=== PATIENT | male | born 1945 | race Caucasian/White ===

== ENCOUNTER 2016-09-14 11:50 | Inpatient (IN) | payer MEDICARE, OTHER ==
--- NOTE | ~2016-09-14 | DS ---
Discharge Summary [facility] [address] [place]. [address] NAME: MARIE HYDE : 45 STATUS : ADM IN [facility]#: [id number] AGE: 71 ADM/REG DATE : 09/14/16 MR#: [id number] REPORT SERV DATE: 09/19/16 DICTATED BY: DATE: REPORT STATUS : Draft TRANSCRIBED BY: MODL DATE: 09/18/16 ADMISSION DATE: 09/14/2016 DISCHARGE DATE: ANTICIPATED DATE OF DISCHARGE: 09/19/2016. [facility] CONSULTANTS: Included Dr. Adilson Benites of Surgery. DISCHARGE DIAGNOSES: 1. Sepsis due to urinary tract infection. 2. Urinary tract infection - Pseudomonas and Citrobacter, both are fluoroquinolone susceptible. Treated with 5 days of antibiotics following suprapubic catheter exchange. 3. Obstructed suprapubic catheter. 4. Acute urinary retention. 5. Incarcerated peristomal hernia - spontaneously resolved after resolution of urinary retention. For possible elective hernia repair in the future. 6. Resolved partial small-bowel obstruction. 7. History of Crohn's disease with colostomy and ileostomy. 8. History of hypertension - not requiring medication this admission. 9. History of non-insulin dependent diabetes mellitus type 2 - hemoglobin A1c is 5.8. Diet controlled. 10.Sensory disabilities - deaf and mute. IMAGING AND DIAGNOSTICS: 1. CT of abdomen and pelvis without contrast done 09/14/2016 shows bowel obstruction at the point of a peristomal hernia in the right lower quadrant. The medial most herniated loop appears to be the point of an obstruction. Suprapubic catheter appears non-functioning with bladder markedly distended to the level of the umbilicus. Fat- containing inguinal hernia on the right, easily reducible. Bilateral intrarenal calculi with no ureteral stone. Hydronephrosis due to bladder distention. 2. Abdominal films, AP and upright, show mildly distended proximal small bowel with gas fluid levels and little gas distally raises the possibility of early or partial small- bowel obstruction. PERTINENT LABS: Procalcitonin 0.05, TSH 2, and hemoglobin A1c 5.8. Urinalysis with large leukocyte esterase, 75 white blood cells, and many bacteria. Subsequent culture demonstrating Pseudomonas and Citrobacter. Pseudomonas was resistant to Bactrim, but both were fluoroquinolone sensitive. White blood cell count 6, hemoglobin 12.4, hematocrit 38, platelets 140, and creatinine 1.0. Lactic acid level was negative. BRIEF HISTORY: For full details, please see the previously dictated history of present illness. This is a 71-year-old white male, who resides at [facility]. He has a past history of Crohn's disease with a colostomy and past history of neurogenic bladder with an Discharge Summary [address] [place]. [address] NAME: MARIE HYDE : [birth year] STATUS : ADM IN [facility]#: [id number] AGE: 71 ADM/REG DATE : 09/14/16 MR#: [id number] REPORT SERV DATE: 09/19/16 DICTATED BY: DATE: REPORT STATUS : Draft TRANSCRIBED BY: MODL DATE: 09/18/16 indwelling suprapubic catheter. Despite some of his sensory difficulties, reportedly he manages his own suprapubic catheter and ostomy at [facility]. He was diagnosed with a urinary tract infection there on the 09/09/2016 and was started on Bactrim, but despite this, he continued to express some ongoing abdominal pain in the form of clutching his abdomen with some declining oral intake. He was brought to the emergency department where he was found to have an obstructed suprapubic catheter which was exchanged in the ER with 1.5 L of urine output. In the ER, he also was noted to have an incarcerated peristomal hernia, with concern for the need for emergent surgery that evening. HOSPITAL COURSE: After the suprapubic catheter was exchanged, the patient's incarcerated hernia resolved spontaneously, and though the patient was seen by Dr. Adilson Benites in the emergency department, he ended up not needing to take the patient to surgery. Sepsis responded to IV fluids and treatment with antibiotics. The patient was placed on Zosyn while urine culture results were awaited and then changed to Levaquin prior to discharge. Optimal duration of treatment for suprapubic catheter associated UTI was discussed with Infectious Disease who recommended 5 days total. The patient completed the 5 day course here in the hospital. The patient also had evidence of a partial small-bowel obstruction which was initially managed conservatively. It resolved radiographically and clinically without any intervention aside from being kept n.p.o. initially, and the patient's diet was slowly advanced to a regular diet during the hospitalization. The patient's other medical issues were stable this admission. He carries a prior diagnosis of hypertension for which he takes Norvasc as an outpatient. Here, his systolic blood pressures range from 110 to 120 tops, and he did not require any amlodipine during the admission. DISCHARGE DISPOSITION: The patient is being discharged to [facility] in the morning, when they are able to accept the patient back. He has been medically stable for discharge since Monday but discharge was delayed due to their inability to [facility]. The patient's power of environmental attorney should schedule a followup appointment with Dr. Benites in 4 to 6 weeks to discuss possibility of an elective hernia repair if they are interested. The patient's suprapubic catheter should be exchanged monthly at [facility] and monitored closely for any signs of recurrent obstruction. DISCHARGE MEDICATIONS: Include: 1. Erythromycin ophthalmic ointment 0.5% applied to both eyes at bedtime. 2. Mesalamine 1500 mg p.o. twice a day. 3. Protonix 40 mg p.o. q.a.c. breakfast and supper. 4. Potassium 30 mEq p.o. daily. 5. Fosamax 35 mg p.o. weekly. 6. Artificial Tears one drop in each eye 4 times a day. 7. Ciera-Colace 1 tablet p.o. twice a day. 8. Centrum 1 tablet p.o. daily. 9. Citracal 2 tablets p.o. twice a day. Discharge Summary [address] [address] NAME: MARIE HYDE : 45 STATUS : ADM IN [facility]#: [id number] AGE: 71 ADM/REG DATE : 09/14/16 MR#: [id number] REPORT SERV DATE: 09/19/16 DICTATED BY: DATE: REPORT STATUS : Draft TRANSCRIBED BY: PALOMA DATE: 09/18/16 10.Fleets enema given each Monday. Thirty minutes was spent in completion of the discharge. SOHA/PALOMA eJro Colvin M.D. / [id number] CC: Emanuel Caldwell M.D. Randy Heisser, M.D. [facility]
--- NOTE | ~2016-09-14 | CN ---
Consultation Report [facility] [address] [place]. [address] NAME: MARIE HYDE : 45 STATUS : ADM IN [facility]#: [id number] AGE: 71 ADM/REG DATE : 09/14/16 MR#: [id number] REPORT SERV DATE: 09/15/16 DICTATED BY: CHELSI CHARLES III DATE: 09/15/16 REPORT STATUS : Draft TRANSCRIBED BY: MODVarun DATE: 09/15/16 DATE OF CONSULTATION: 09/14/2016 REASON FOR CONSULT: 1. Small-bowel obstruction. 2. Incarcerated incisional hernia. 3. Recommendation regarding surgical management. HISTORY OF PRESENT ILLNESS: I am asked to see this 71-year-old male hospitalized for the above reasons. The patient has a history of mental disability and is not able to communicate. He is deaf and mute. The patient lives locally at [facility]. On the morning of admission, he was noted to have sudden change in his status with apparent abdominal pain and distention. He was brought to the emergency room and CT scan of the abdomen and pelvis were performed which showed evidence for severe bladder distention as well as what appeared to be incarcerated parastomal hernia with small bowel obstruction related to this hernia. The patient himself is not able to communicate. He was noted to have a palpable mass just medial to his right- sided right lower quadrant ileostomy. This was noted by Dr. Esteves in the emergency room. It was felt that emergent repair was indicated. The patient was posted for surgery for repair of this acutely incarcerated incisional hernia. It was noted that his suprapubic bladder tube was occluded. This was corrected and the bladder was drained. On my exam in the preoperative area, it was noted that the patient's hernia completely reduced. The patient is completely asymptomatic. He had good ileostomy output. This surgery was therefore canceled. PAST MEDICAL HISTORY: 1. History of complete deafness and mental disability with the patient being unable to communicate. 2. History of suprapubic catheter. 3. History of urinary tract infections in the past. 4. History of apparent Crohn's disease and ulcerative colitis, status post colectomy and ileostomy. 5. History of neurogenic bladder with suprapubic catheter in place. 6. Non-insulin dependent diabetes mellitus. FAMILY HISTORY: Remarkable for hypertension. MEDICATIONS: As per medication list. PHYSICAL EXAMINATION: Consultation Report [facility] [address] [place]. [address] NAME: MARIE HYDE : 45 STATUS : ADM IN PAT#: [id number] AGE: 71 ADM/REG DATE : 09/14/16 MR#: [id number] REPORT SERV DATE: 09/15/16 DICTATED BY: CHELSI CHARLES III DATE: 09/15/16 REPORT STATUS : Draft TRANSCRIBED BY: PALOMA DATE: 09/15/16 GENERAL: Male who is alert and appropriate and very comfortable. He is in no distress. He is unable to hear or speak or communicate as far as I can determine. HEENT: Otherwise unremarkable. Cranial nerves 2 through 12 are normal otherwise. LUNGS: Clear. ABDOMEN: Soft and nontender. He has a parastomal hernia which is completely reduced at this time. There is no mass palpable. He has a suprapubic catheter in place which is draining well. EXTREMITIES: Normal. LABORATORY DATA: CT scan of the abdomen and pelvis which I reviewed on admission showed massively distended bladder consistent with obstruction of the suprapubic tube. There was noted to be a parastomal hernia with a loop of small bowel within this hernia associated with a small bowel obstruction. Electrolytes are unremarkable with BUN of 13, creatinine is normal at 1.17. Liver enzymes are normal. White blood cell count is normal at 12.4, hematocrit 38. UA shows numerous white blood cells. ASSESSMENT: 1. This is a 71-year-old male with acutely distended urinary bladder, with acute urinary retention, apparently secondary to dysfunctional suprapubic bladder tube. This has now been relieved. 2. Temporarily incarcerated parastomal hernia, with this being reduced spontaneously. This was associated with partial small bowel obstruction. This has been reduced spontaneously and may have been related to the acute bladder distention. 3. Mental disability of unclear etiology. 4. Deafness and muteness. 5. History of neurogenic bladder. PLAN: The patient was scheduled for emergent surgery for repair of an acutely incarcerated incisional hernia. However, the hernia has reduced spontaneously after the bladder was decompressed. I suspect that the acute bladder distention may have forced a loop of small bowel into the hernia which has now reduced. While the hernia may need to be repaired electively, the patient also has urinary tract infection which is being treated appropriately with broad-spectrum antibiotics. As the hernia has reduced I do not feel that emergent repair of this hernia is indicated at this time. The patient's surgery was therefore canceled. The patient will be admitted to the hospital and started on bowel rest and IV fluids. I will request a KUB. As long as the patient's obstruction resolved, I do not think there is indication of the need for emergent surgical intervention. I do feel however that elective repair of the hernia need to be considered after this admission after his urinary tract infection has been treated, and if in agreement with the patient's power of project hire. This plan has been discussed with the patient who was not able to understand and also with Consultation Report [address] [place]. [address] NAME: MARIE HYDE : 45 STATUS : ADM IN PAT#: [id number] AGE: 71 ADM/REG DATE : 09/14/16 MR#: [id number] REPORT SERV DATE: 09/15/16 DICTATED BY: CHELSI CHARLES III DATE: 09/15/16 REPORT STATUS : Draft TRANSCRIBED BY: PALOMA DATE: 09/15/16 the patient's caregiver who accompanies him. [place]/PALOMA Chelsi Charles III, M.D. / [id number] CC: Felix Benavidez M.D.
--- NOTE | ~2016-09-14 | DS ---
Discharge Summary [place] [id number] [facility] [place] [address] NAME: MARIE HYDE : 45 STATUS : DIS IN PAT#: [id number] AGE: 71 ADM/REG DATE : 09/14/16 MR#: [id number] REPORT SERV DATE: 09/20/16 DICTATED BY: DATE: REPORT STATUS : Draft TRANSCRIBED BY: MODL DATE: 09/19/16 ADMISSION DATE: 09/14/2016 DISCHARGE DATE: 09/19/2016 ADDENDUM: Please reference discharge summary dictated on 09/18/2016. Discharge diagnoses remain the same. The patient remained in the hospital until 09/19/2016, awaiting acceptance and transfer back to his us[facility],([facility]). SOHA/PALOMA Jero Colvin M.D. / [id number] CC: Emanuel Caldwell M.D.
--- NOTE | ~2016-09-14 | HP ---
History And Physical [place] [id number] [facility] [place]. [address] NAME: MARIE HYDE : 45 STATUS : ADM IN PAT#: [id number] AGE: 71 ADM/REG DATE : 09/14/16 MR#: [id number] REPORT SERV DATE: 09/14/16 DICTATED BY: ABENA ONOFRE DATE: 09/14/16 REPORT STATUS : Draft TRANSCRIBED BY: MODL DATE: 09/14/16 DATE OF ADMISSION: 09/14/2016 REASON FOR ADMISSION: Abdominal pain. Primary care doctor is Dr. Benavidez at [facility]. HISTORY OF PRESENT ILLNESS: This is an unfortunate 71-year-old male who suffers from an intellectual disability, he is deaf and mute, suffering as well from Crohn's disease, resulting in a colostomy with ileostomy, known history of ileus, GI bleed, colitis, hypertension, ibo-[id number] diabetes, ANTONIO, suprapubic catheter dependence with a neurogenic bladder. The patient is a very poor historian. The patient is deaf and mute, but yet he is attended by a caregiver at [facility] named Shira Hong. The patient comes then after trying to guard his hypogastric region. As a result, the patient came here and found to have a white count 12.4, significant guarding at least initially resulting in a CT abdomen and pelvis which showed bowel obstruction, appears to be at a point of peristomal hernia right lower quadrant, medialmost herniated loop appears to be at the point of obstruction. Suprapubic catheter appears to be nonfunctioning. The bladder is markedly distended at the level of the umbilicus. Fat-containing inguinal hernia on the right by history, easily reducible, bilateral intrarenal calculi. No ureteral stones seen. Hydronephrosis likely due to bladder distention. Followup recommended. As a result, suprapubic catheter was probably changed, almost a liter of urine per Natasha Hong resulted. The patient was also seen prior to that to have some perisuprapubic catheter urine leakage. The patient feels better. Blood pressure stable. He was given 200 mL an hour of normal saline and systolic of 100 from 129/62. The patient is not able to endorse nor is Shira if the patient has any fevers, chills, nausea, vomiting, diarrhea, chest pain, chest pressure, shortness of breath, or cough. REVIEW OF SYSTEMS: Done, see HPI. Otherwise, negative. PAST MEDICAL/PAST SURGICAL HISTORY: See above. ALLERGIES: APPARENTLY CONTRAST DYE, BEANS AND CHILLI, HALDOL, UNCLEAR REACTION TO ANY OF THAT. SOCIAL HISTORY: The patient is deaf and mute. Intellectual disability. At [facility]. Unable to obtain if the patient has any alcohol or drug use or tobacco use, per history he does not. History And Physical [address] [address] NAME: MARIE HYDE : 45 STATUS : ADM IN [facility]#: [id number] AGE: 71 ADM/REG DATE : 09/14/16 MR#: [id number] REPORT SERV DATE: 09/14/16 DICTATED BY: ABENA ONOFRE DATE: 09/14/16 REPORT STATUS : Draft TRANSCRIBED BY: PALOMA DATE: 09/14/16 FAMILY HISTORY: Hypertension in at least one parent. HOME MEDICATIONS: See MAR. We will continue what is relevant. The patient apparently was started on Bactrim on the 09/09/2016. I do not have a urine culture but that is due to a UTI. PHYSICAL EXAMINATION: OBJECTIVE VITALS: VITAL SIGNS: 100 systolic from 129/62, 98.8 temperature, 94 pulse, 14 respirations, and 97% on room air. GENERAL: Guarded. HEENT: PERRLA. No scleral icterus. CARDIOVASCULAR: Regular rate and rhythm. No murmur. RESPIRATORY: Decreased breath sounds bibasilarly, otherwise, no wheezes, no crackles. ABDOMEN: He does have some guarding when I tried to do light palpation in the hypogastric region more on the right lower quadrant from the left. No rebound tenderness. No overt peritoneal signs, however, patient is a poor historian. Only grimaces to palpation. NEUROLOGIC: The patient is deaf and mute. Unable to assess A and O status or GCS now. GCS is at least going to be 12, confounded by his deaf and mute status. PSYCHIATRIC: Unable to assess given neurologic status. LABORATORY DATA: Labs have a white count of 12.4, hemoglobin 14.6, platelets 197,000. Potassium 3.9, bicarb 27, creatinine 1.17, BUN 13, sodium 140, sugar 102. Lipase normal. Alkaline phosphatase 123. Urinalysis positive clump, 75 white blood cells, positive leukocyte esterase. CT see above. Also we will be getting an EKG which is pending. ASSESSMENT AND PLAN: 1. Severe sepsis, worrisome is incarcerated hernia severity due to his significant prerenal azotemia. 2. UTI rule out. He does have a chronic suprapubic catheter given his borderline hypotension and leukocytosis. We will treat empirically. 3. Intellectual disability, both deaf and mute. 4. Prerenal azotemia. 5. Surgical need for incarcerated parastomal hernia. 6. Crohn's disease immunocompromised state. PLAN: We will go ahead and admit this patient. ER had contacted Dr. Benites who will do surgery tonight. The patient is stable at this time. I will empirically give a liter of normal saline bolus and D5 LR of 100. Speech will be called if he is hypotensive. Empiric vancomycin and Zosyn as the patient is placed on Bactrim. I do not know if the patient has MRSA of his urine. As a result, I will empirically treat. Antipseudomonal Zosyn as well. Resume his home medications. N.p.o. except medications and ice chips. Hold his antihypertensives and plan for surgery. All questions were answered. It took well over 60 minutes to do. Reference [employer] and [employer]. History And Physical [address] [address] NAME: MARIE HYDE : 45 STATUS : ADM IN [facility]#: [id number] AGE: 71 ADM/REG DATE : 09/14/16 MR#: [id number] REPORT SERV DATE: 09/14/16 DICTATED BY: ABENA NOOFRE DATE: 09/14/16 REPORT STATUS : Draft TRANSCRIBED BY: PALOMA DATE: 09/14/16 FARZANEH/PALOMA Abena Onofre DO / [id number] CC: Felix Benavidez M.D.
[2016-09-14 10:18] LABS: BASOPHILS 0.1 %; BASOPHILS ABSOLUTE 0.01 10/3/uL (0.0-0.16); EOSINOPHILS 0.2 %; EOSINOPHILS ABSOLUTE 0.03 10/3/uL (0.0-0.53); HEMATOCRIT 42.7 % (40.0-51.0); HEMOGLOBIN 14.6 g/dL (13.6-17.8); IMMATURE GRANULOCYTES 0.2 %; IMMATURE GRANULOCYTES ABSOLUTE 0.03 10/3/uL (0.0-0.11); LYMPHOCYTES 9.5 %; LYMPHOCYTES ABSOLUTE 1.18 10/3/uL (0.67-4.30); MEAN CORPUS HGB CONC 34.2 g/dL (32.0-36.0); MEAN CORPUSCULAR HEMOGLOB 28.8 pg (26.0-34.0); MEAN CORPUSCULAR VOLUME 84.2 fL (80-100); MEAN PLATELET VOLUME 10.5 fL (9.2-13.0); MONOCYTES 7.9 %; MONOCYTES ABSOLUTE 0.98 10/3/uL (0.21-1.20); NEUTROPHILS 82.1 %; RBC DISTRIBUTION WIDTH 16.1 % (12.0-16.0); RED CELL COUNT 5.07 10/6/uL (4.7-6.1); WHITE BLOOD CELLS 12.4 10/3/uL (4.5-10.5)
[2016-09-14 10:20] LABS: MANUAL DIFF NO %; PLATELET COUNT 197 10/3/uL (150-400)
[2016-09-14 10:22] LABS: ASCORBIC ACID (UR NOT ORDER) NEG (NEG); BILIRUBIN, URINE NEGATIVE (NEG); ER URINALYSIS TAT 0 Hrs 08 Mins; KETONE, URINE NEGATIVE (NEG); LEUKOCYTE ESTERASE(NOT OR LARGE (NEG); NITRITE (URINE) NEG (NEG); WBC (NOT ORDERED) (RFLEX) 75 (0-5)
[2016-09-14 10:42] LABS: A/G RATIO 0.9 (0.7-1.9); ALBUMIN 3.7 G/DL (3.5-5.0); ALKALINE PHOSPHATASE 123 U/L (45-117); BUN (BLOOD UREA NITROGEN) 13 MG/DL (6-23); CALCIUM, SERUM 9.8 MG/DL (8.5-10.4); CHLORIDE, SERUM 102 MMOL/L (96-112); CO2 (CARBON DIOXIDE) 27 MMOL/L (24-34); CREATININE 1.17 MG/DL (0.70-1.30); GFR AFRICAN AMERICAN 72 ML/MIN (>=60); GFR NON AFRICAN AMERICAN 62 ML/MIN (>=60); GLOBULIN 4.2 G/DL (2.5-4.1); GLUCOSE, SERUM 102 MG/DL (60-99); POTASSIUM, SERUM 3.9 MMOL/L (3.5-5.3); SGOT(AST) 25 U/L (5-40); SGPT(ALT) 35 U/L (5-65); SODIUM, SERUM 140 MMOL/L (135-148); TOTAL BILIRUBIN 0.6 MG/DL (0-1.2); TOTAL PROTEIN 7.9 G/DL (6.0-8.5)
[~2016-09-14 11:50] MED LIST: A/D ZINC OXI EX; ACET500CAP PO; ACETIC ACID OT; ARTIFICAL TEARS; ARTIFICIAL TEARS TOP; AUG BETAMET0.053 T; BABY OIL; BACTROINT TOP; CIP5 PO; CITRACAL PO; DIPROSONE CREAM15 GM T; DIPROSONE CREAM15 GM TOP; DOMEBORO; DOMEBORO OT; DOMEBORO T; DRY EYES OP; DYAZIDE PO; DYAZIDE1 CAP PO; FOSAMAX70 MG PO; HYDROCORTISONE 1% TOP; HYTONE 0.5% CRM30 GM T; HYTONE2.5 % TOP; KDUR20 PO; KLOR-CON 1010 MEQ PO; Klor-Con PO; LACRILUBEO OPH; MAX25 PO; MULTIPLE VIT PO; NATURA2 OP; NORV5 PO; OS500+D PO; PENTASA500 MG PO; PERI-COLACE1 TAB PO; PERICOLACE PO; PROTONIX PO; REFRESH OPH SO0.3 ML OPH; ROMYCIN OPH; TEARS NATURA OP; TOBREX0.3 % OP; VIGAMOX OPH; [UNRECOGNIZED DRUG - OTHER]; [UNRECOGNIZED DRUG - OTHER]; [UNRECOGNIZED DRUG - OTHER] OT; [UNRECOGNIZED DRUG - OTHER] PO; [UNRECOGNIZED DRUG - OTHER] PO; [UNRECOGNIZED DRUG - OTHER] PO; [UNRECOGNIZED DRUG - OTHER] TOP; [UNRECOGNIZED DRUG - OTHER] TOP; [UNRECOGNIZED DRUG - REMARK] INH
[2016-09-14] MEDS ORDERED: PROTONIX PO (12:11)
[2016-09-14] MEDS ORDERED: PENTASA500 MG PO (12:11)
[2016-09-14] MEDS ORDERED: ERYTHROMYCIN O3.5 G1 OPH (12:12)
[2016-09-14] MEDS ORDERED: BION TEARS OPH (12:12)
[2016-09-14] MEDS ORDERED: FOSAMAX35 MG PO (12:13)
[2016-09-14] MEDS ORDERED: K-TABS10 MEQ PO (12:13)
[2016-09-14] MEDS ORDERED: CENTRUM PO (12:13)
[2016-09-14] MEDS ORDERED: PERI-COLACE1 TAB PO (12:13)
[2016-09-14] MEDS ORDERED: NORV5 PO (12:13)
[2016-09-14] MEDS ORDERED: FLEETS ENEMA PR (12:14)
[2016-09-14] MEDS ORDERED: CITRACAL PO (12:14)
[2016-09-14] MEDS ORDERED: BACDS PO (12:14)
[2016-09-15 01:41] LABS: LACTATE 0.6 MMOL/L (0.3-2.4)
[2016-09-15 06:15] LABS: BASOPHILS 0.3 %; BASOPHILS ABSOLUTE 0.02 10/3/uL (0.0-0.16); EOSINOPHILS ABSOLUTE 0.18 10/3/uL (0.0-0.53); HEMOGLOBIN 12.4 g/dL (13.6-17.8); IMMATURE GRANULOCYTES 0.3 %; IMMATURE GRANULOCYTES ABSOLUTE 0.02 10/3/uL (0.0-0.11); LYMPHOCYTES 23.5 %; LYMPHOCYTES ABSOLUTE 1.42 10/3/uL (0.67-4.30); MEAN CORPUS HGB CONC 32.6 g/dL (32.0-36.0); MEAN CORPUSCULAR HEMOGLOB 28.4 pg (26.0-34.0); MEAN PLATELET VOLUME 11.1 fL (9.2-13.0); MONOCYTES 8.6 %; MONOCYTES ABSOLUTE 0.52 10/3/uL (0.21-1.20); NEUTROPHILS 64.3 %; NEUTROPHILS ABSOLUTE 3.88 10/3/uL (2.02-8.40); PLATELET COUNT 140 10/3/uL (150-400); RBC DISTRIBUTION WIDTH 16.7 % (12.0-16.0); RED CELL COUNT 4.36 10/6/uL (4.7-6.1)
[2016-09-15 06:16] LABS: MANUAL DIFF NO %; MEAN CORPUSCULAR VOLUME 87.2 fL (80-100)
[2016-09-15 06:38] LABS: CHLORIDE, SERUM 108 MMOL/L (96-112); CO2 (CARBON DIOXIDE) 27 MMOL/L (24-34); CREATININE 1.06 MG/DL (0.70-1.30); GFR AFRICAN AMERICAN 81 ML/MIN (>=60); GFR NON AFRICAN AMERICAN 70 ML/MIN (>=60); PHOSPHORUS, SERUM 2.6 MG/DL (2.5-4.5); SODIUM, SERUM 143 MMOL/L (135-148)
[2016-09-15 06:41] LABS: BUN (BLOOD UREA NITROGEN) 9 MG/DL (6-23); CALCIUM, SERUM 8.3 MG/DL (8.5-10.4); GLUCOSE, SERUM 70 MG/DL (60-99)
[2016-09-15 06:50] LABS: B NATRIURETIC PEPTIDE (BNP) 107.6 PG/ML (< 100.0)
[2016-09-15 07:07] LABS: PROCALCITONIN 0.05 ng/mL (<0.5)
[2016-09-15 07:30] LABS: GLYCOHEMOGLOBIN (HbA1c) 5.8 % (4.7-6.1)
[2016-09-16 07:16] LABS: BASOPHILS 0.4 %; BASOPHILS ABSOLUTE 0.02 10/3/uL (0.0-0.16); EOSINOPHILS 3.9 %; HEMATOCRIT 37.7 % (40.0-51.0); HEMOGLOBIN 12.4 g/dL (13.6-17.8); IMMATURE GRANULOCYTES 0.2 %; IMMATURE GRANULOCYTES ABSOLUTE 0.01 10/3/uL (0.0-0.11); LYMPHOCYTES 25.1 %; LYMPHOCYTES ABSOLUTE 1.28 10/3/uL (0.67-4.30); MEAN CORPUS HGB CONC 32.9 g/dL (32.0-36.0); MEAN CORPUSCULAR HEMOGLOB 28.8 pg (26.0-34.0); MEAN CORPUSCULAR VOLUME 87.5 fL (80-100); MEAN PLATELET VOLUME 11.1 fL (9.2-13.0); MONOCYTES 7.5 %; MONOCYTES ABSOLUTE 0.38 10/3/uL (0.21-1.20); NEUTROPHILS 62.9 %; NEUTROPHILS ABSOLUTE 3.21 10/3/uL (2.02-8.40); PLATELET COUNT 129 10/3/uL (150-400); RBC DISTRIBUTION WIDTH 16.4 % (12.0-16.0); RED CELL COUNT 4.31 10/6/uL (4.7-6.1); WHITE BLOOD CELLS 5.1 10/3/uL (4.5-10.5)
[2016-09-16 07:19] LABS: MANUAL DIFF NO %
[2016-09-16 07:23] LABS: CALCIUM, SERUM 8.1 MG/DL (8.5-10.4); CHLORIDE, SERUM 111 MMOL/L (96-112); CO2 (CARBON DIOXIDE) 24 MMOL/L (24-34); CREATININE 0.96 MG/DL (0.70-1.30); GFR AFRICAN AMERICAN 92 ML/MIN (>=60); GFR NON AFRICAN AMERICAN 79 ML/MIN (>=60); PHOSPHORUS, SERUM 2.3 MG/DL (2.5-4.5); POTASSIUM, SERUM 3.6 MMOL/L (3.5-5.3); SODIUM, SERUM 145 MMOL/L (135-148)
[2016-09-16 07:24] LABS: GLUCOSE, SERUM 90 MG/DL (60-99)
[2016-09-16 07:34] LABS: BUN (BLOOD UREA NITROGEN) 6 MG/DL (6-23)
[2016-09-17 07:08] LABS: BASOPHILS 0.2 %; BASOPHILS ABSOLUTE 0.01 10/3/uL (0.0-0.16); EOSINOPHILS 4.3 %; EOSINOPHILS ABSOLUTE 0.23 10/3/uL (0.0-0.53); HEMATOCRIT 37.9 % (40.0-51.0); HEMOGLOBIN 12.3 g/dL (13.6-17.8); LYMPHOCYTES 25.5 %; LYMPHOCYTES ABSOLUTE 1.35 10/3/uL (0.67-4.30); MANUAL DIFF NO %; MEAN CORPUS HGB CONC 32.5 g/dL (32.0-36.0); MEAN CORPUSCULAR HEMOGLOB 28.1 pg (26.0-34.0); MEAN CORPUSCULAR VOLUME 86.7 fL (80-100); MONOCYTES 6.2 %; MONOCYTES ABSOLUTE 0.33 10/3/uL (0.21-1.20); NEUTROPHILS 63.8 %; NEUTROPHILS ABSOLUTE 3.37 10/3/uL (2.02-8.40); PLATELET COUNT 137 10/3/uL (150-400); RBC DISTRIBUTION WIDTH 16.5 % (12.0-16.0); RED CELL COUNT 4.37 10/6/uL (4.7-6.1); WHITE BLOOD CELLS 5.3 10/3/uL (4.5-10.5)
[2016-09-17 07:15] LABS: BUN (BLOOD UREA NITROGEN) 6 MG/DL (6-23); CALCIUM, SERUM 8.1 MG/DL (8.5-10.4); CHLORIDE, SERUM 110 MMOL/L (96-112); CO2 (CARBON DIOXIDE) 26 MMOL/L (24-34); CREATININE 1.04 MG/DL (0.70-1.30); GFR AFRICAN AMERICAN 83 ML/MIN (>=60); GFR NON AFRICAN AMERICAN 72 ML/MIN (>=60); GLUCOSE, SERUM 99 MG/DL (60-99); PHOSPHORUS, SERUM 2.2 MG/DL (2.5-4.5); POTASSIUM, SERUM 3.8 MMOL/L (3.5-5.3); SODIUM, SERUM 143 MMOL/L (135-148)
[2016-09-18 06:44] LABS: BASOPHILS 0.2 %; BASOPHILS ABSOLUTE 0.01 10/3/uL (0.0-0.16); EOSINOPHILS 4.4 %; EOSINOPHILS ABSOLUTE 0.26 10/3/uL (0.0-0.53); HEMOGLOBIN 12.4 g/dL (13.6-17.8); IMMATURE GRANULOCYTES 0.2 %; IMMATURE GRANULOCYTES ABSOLUTE 0.01 10/3/uL (0.0-0.11); LYMPHOCYTES 28.5 %; LYMPHOCYTES ABSOLUTE 1.69 10/3/uL (0.67-4.30); MEAN CORPUS HGB CONC 32.6 g/dL (32.0-36.0); MEAN CORPUSCULAR HEMOGLOB 28.2 pg (26.0-34.0); MEAN CORPUSCULAR VOLUME 86.6 fL (80-100); MONOCYTES 6.1 %; MONOCYTES ABSOLUTE 0.36 10/3/uL (0.21-1.20); NEUTROPHILS 60.6 %; NEUTROPHILS ABSOLUTE 3.59 10/3/uL (2.02-8.40); PLATELET COUNT 138 10/3/uL (150-400); RBC DISTRIBUTION WIDTH 16.5 % (12.0-16.0); RED CELL COUNT 4.39 10/6/uL (4.7-6.1); WHITE BLOOD CELLS 5.9 10/3/uL (4.5-10.5)
[2016-09-18 06:46] LABS: MANUAL DIFF NO %
[2016-09-18 06:51] LABS: BUN (BLOOD UREA NITROGEN) 6 MG/DL (6-23); CALCIUM, SERUM 7.8 MG/DL (8.5-10.4); CHLORIDE, SERUM 109 MMOL/L (96-112); CO2 (CARBON DIOXIDE) 26 MMOL/L (24-34); CREATININE 0.93 MG/DL (0.70-1.30); GFR AFRICAN AMERICAN 95 ML/MIN (>=60); GFR NON AFRICAN AMERICAN 82 ML/MIN (>=60); PHOSPHORUS, SERUM 2.7 MG/DL (2.5-4.5); POTASSIUM, SERUM 3.7 MMOL/L (3.5-5.3); SODIUM, SERUM 144 MMOL/L (135-148)
[2016-09-18 06:52] LABS: GLUCOSE, SERUM 73 MG/DL (60-99)
[2016-09-19 06:52] LABS: BASOPHILS 0.2 %; BASOPHILS ABSOLUTE 0.01 10/3/uL (0.0-0.16); EOSINOPHILS 3.6 %; EOSINOPHILS ABSOLUTE 0.22 10/3/uL (0.0-0.53); HEMATOCRIT 39.6 % (40.0-51.0); HEMOGLOBIN 12.8 g/dL (13.6-17.8); IMMATURE GRANULOCYTES 0.2 %; IMMATURE GRANULOCYTES ABSOLUTE 0.01 10/3/uL (0.0-0.11); LYMPHOCYTES 18.6 %; LYMPHOCYTES ABSOLUTE 1.15 10/3/uL (0.67-4.30); MEAN CORPUS HGB CONC 32.3 g/dL (32.0-36.0); MEAN CORPUSCULAR HEMOGLOB 28.2 pg (26.0-34.0); MEAN CORPUSCULAR VOLUME 87.2 fL (80-100); MEAN PLATELET VOLUME 10.7 fL (9.2-13.0); MONOCYTES 6.6 %; MONOCYTES ABSOLUTE 0.41 10/3/uL (0.21-1.20); NEUTROPHILS 70.8 %; NEUTROPHILS ABSOLUTE 4.37 10/3/uL (2.02-8.40); PLATELET COUNT 142 10/3/uL (150-400); RBC DISTRIBUTION WIDTH 16.7 % (12.0-16.0); RED CELL COUNT 4.54 10/6/uL (4.7-6.1); WHITE BLOOD CELLS 6.2 10/3/uL (4.5-10.5)
[2016-09-19 06:55] LABS: MANUAL DIFF NO %
[2016-09-19 07:12] LABS: BUN (BLOOD UREA NITROGEN) 10 MG/DL (6-23); CHLORIDE, SERUM 110 MMOL/L (96-112); CO2 (CARBON DIOXIDE) 28 MMOL/L (24-34); CREATININE 0.95 MG/DL (0.70-1.30); GFR AFRICAN AMERICAN 93 ML/MIN (>=60); GFR NON AFRICAN AMERICAN 80 ML/MIN (>=60); GLUCOSE, SERUM 108 MG/DL (60-99); PHOSPHORUS, SERUM 1.9 MG/DL (2.5-4.5); SODIUM, SERUM 144 MMOL/L (135-148)
== END 2016-09-19 14:00 | disposition home or self-care (01) | DRG 698 ==
LOC: ER 11:50 → 4EA 13:25 → ER/OF 13:34 → 5SO 15:36
PROVIDERS: Emergency Medicine; Internal Medicine; Surgery
DX: T83.098A Other mechanical complication of other urinary catheter, initial encounter (principal); A41.9 Sepsis, unspecified organism; R65.20 Severe sepsis without septic shock; K50.90 Crohn's disease, unspecified, without complications; K43.3 Parastomal hernia with obstruction, without gangrene; N31.9 Neuromuscular dysfunction of bladder, unspecified; K46.0 Unspecified abdominal hernia with obstruction, without gangrene; N39.0 Urinary tract infection, site not specified; E11.9 Type 2 diabetes mellitus without complications; H91.3 Deaf nonspeaking, not elsewhere classified; Z88.8 Allergy status to other drugs, medicaments and biological substances; Z91.041 Radiographic dye allergy status; Z82.49 Family history of ischemic heart disease and other diseases of the circulatory system; Z87.440 Personal history of urinary (tract) infections; Z79.899 Other long term (current) drug therapy; Z79.84 Long term (current) use of oral hypoglycemic drugs; B96.5 Pseudomonas (aeruginosa) (mallei) (pseudomallei) as the cause of diseases classified elsewhere; B96.89 Other specified bacterial agents as the cause of diseases classified elsewhere; I10 Essential (primary) hypertension; R33.8 Other retention of urine; Z93.3 Colostomy status
CPT/HCPCS: 74020; 74176; 80048; 80053; 81001; 82962; 83036; 83605; 83690; 83735; 83880; 84100; 84145; 84443; 85025; 87040; 87077; 87086; 87186; 93005; 99285; A9270-GY; J1170; J2405; J2543; J3010; J3370

== ENCOUNTER 2017-04-04 17:42 | Emergency (ER) | payer MEDICARE, OTHER ==
[~2017-04-04 17:42] MED LIST changes: +BACDS PO; +BION TEARS OPH; +CENTRUM PO; +ERYTHROMYCIN O3.5 G1 OPH; +FLEETS ENEMA PR; +FOSAMAX35 MG PO; +K-TABS10 MEQ PO
[2017-04-04 18:47] LABS: BASOPHILS 0.1 %; BASOPHILS ABSOLUTE 0.01 10/3/uL (0.0-0.16); EOSINOPHILS 0.4 %; EOSINOPHILS ABSOLUTE 0.06 10/3/uL (0.0-0.53); IMMATURE GRANULOCYTES 0.2 %; IMMATURE GRANULOCYTES ABSOLUTE 0.03 10/3/uL (0.0-0.11); LYMPHOCYTES 7.7 %; LYMPHOCYTES ABSOLUTE 1.07 10/3/uL (0.67-4.30); MEAN CORPUSCULAR HEMOGLOB 29.2 pg (26.0-34.0); MEAN PLATELET VOLUME 11.8 fL (9.2-13.0); MONOCYTES 5.6 %; MONOCYTES ABSOLUTE 0.77 10/3/uL (0.21-1.20); NEUTROPHILS ABSOLUTE 11.91 10/3/uL (2.02-8.40); PLATELET COUNT 175 10/3/uL (150-400); RBC DISTRIBUTION WIDTH 15.9 % (12.0-16.0); RED CELL COUNT 5.37 10/6/uL (4.7-6.1)
[2017-04-04 18:48] LABS: ER CBC TAT 0 Hrs 07 Mins; HEMATOCRIT 46.2 % (40.0-51.0); HEMOGLOBIN 15.7 g/dL (13.6-17.8); MANUAL DIFF NO %; WHITE BLOOD CELLS 13.9 10/3/uL (4.5-10.5)
[2017-04-04 19:02] LABS: ALBUMIN 4.2 G/DL (3.5-5.0); ALKALINE PHOSPHATASE 125 U/L (45-117); CALCIUM, SERUM 8.9 MG/DL (8.5-10.4); CHLORIDE, SERUM 107 MMOL/L (96-112); CO2 (CARBON DIOXIDE) 25 MMOL/L (24-34); CREATININE 1.07 MG/DL (0.70-1.30); GFR AFRICAN AMERICAN 81 ML/MIN (>=60); GFR NON AFRICAN AMERICAN 69 ML/MIN (>=60); GLOBULIN 4.4 G/DL (2.5-4.1); SGOT(AST) 22 U/L (5-40); SGPT(ALT) 30 U/L (5-65); SODIUM, SERUM 141 MMOL/L (135-148); TOTAL PROTEIN 8.6 G/DL (6.0-8.5)
[2017-04-04 19:04] LABS: BUN (BLOOD UREA NITROGEN) 15 MG/DL (6-23); GLUCOSE, SERUM 179 MG/DL (60-99); TOTAL BILIRUBIN 1.2 MG/DL (0-1.2)
[2017-04-04 23:09] LABS: ASCORBIC ACID (UR NOT ORDER) NEG (NEG); BILIRUBIN, URINE NEGATIVE (NEG); ER URINALYSIS TAT 0 Hrs 00 Mins; KETONE, URINE NEGATIVE (NEG); LEUKOCYTE ESTERASE(NOT OR LARGE (NEG); NITRITE (URINE) NEG (NEG); WBC (NOT ORDERED) (RFLEX) > 182 (0-5)
== END 2017-04-05 01:02 | disposition home or self-care (01) ==
LOC: ER 17:42
PROVIDERS: Hospitalist
PROC: 0T2BX0Z Change Drainage Device in Bladder, External Approach (ICD-10-PCS; principal; 2017-04-04)
DX: R33.9 Retention of urine, unspecified (principal); N39.0 Urinary tract infection, site not specified; N31.9 Neuromuscular dysfunction of bladder, unspecified; I10 Essential (primary) hypertension; E11.9 Type 2 diabetes mellitus without complications; Z91.041 Radiographic dye allergy status; Z88.8 Allergy status to other drugs, medicaments and biological substances; Z79.899 Other long term (current) drug therapy
CPT/HCPCS: 71020; 74176; 80053; 81001; 85025; 87040; 87077; 87086; 87186; 96372; 99284; A9270-GY